=== PATIENT | female | born 1950 | race Asian ===

== ENCOUNTER 2024-08-05 19:15 | Emergency (ER) | payer MEDICARE, MEDICAID ==
[~2024-08-05] VITALS: Ht 162.6 cm; Wt 55.0 kg
[2024-08-05 19:55] LABS: BILIRUBIN,URINE NEGATIVE (Neg); CLARITY,URINE CLEAR (Clear); COLOR,URINE YELLOW (Yellow); GLUCOSE, URINE NEGATIVE (Neg); KETONES,URINE NEGATIVE (Neg); LEUKOCYTE ESTERASE ,URINE NEGATIVE (Neg); NITRITES, URINE NEGATIVE (Neg); OCCULT BLOOD,URINE TRACE-INTACT (Neg); PROTEIN,URINE NEGATIVE (Neg); UROBILINOGEN,URINE 0.2 E.U/dL (0.2-1.0)
[2024-08-05 20:00] LABS: BASOPHILS # (AUTO) 0.1 X10'3 (0-0.2); BASOPHILS % (AUTO) 1.3 % (0-1); EOSINOPHILS # (AUTO) 0.3 X10'3 (0-0.9); EOSINOPHILS % (AUTO) 2.5 % (0-6); HEMATOCRIT 40.4 % (35.0-45.0); HEMOGLOBIN 13.7 g/dl (12.0-16.0); LYMPHOCYTES # (AUTO) 4.1 X10'3 (1.1-4.8); LYMPHOCYTES % (AUTO) 34.8 % (21-51); MEAN CORPUSCULAR HEMOGLOBIN 30.3 PG (27.0-31.0); MEAN CORPUSCULAR VOLUME 89.2 FL (78-98); MEAN PLATELET VOLUME 8.1 FL (7.4-10.4); MONOCYTES # (AUTO) 0.8 X10'3 (0-0.9); NEUTROPHILS # (AUTO) 6.4 X10'3 (1.8-7.7); NEUTROPHILS % (AUTO) 54.4 % (42-75); PLATELET COUNT 247 X10'3 (140-440); RED BLOOD COUNT 4.53 X10'6 (4.20-5.60); RED CELL DISTRIBUTION WIDTH 13.2 % (11.5-14.5); WHITE BLOOD COUNT 11.8 X10'3 (4.5-11.0)
[2024-08-05 20:00] LABS: UA COLLECTION TYPE VOIDED
[2024-08-05 20:07] LABS: BACTERIA,URINE NONE SEEN /HPF (Neg); RBC,URINE 0-2 /HPF (0-2); SQUAMOUS EPITHELIAL CELL,UR FEW /LPF (FEW); WBC,URINE NONE SEEN /HPF (0-4)
[2024-08-05 20:10] LABS: ANION GAP 11 (8-16); BLOOD UREA NITROGEN 12 MG/DL (7-18); BUN/CREATININE RATIO 21.1 (10.0-20.0); CALCIUM 9.3 MG/DL (8.5-10.1); CHLORIDE 100 MMOL/L (99-107); CREATININE 0.57 MG/DL (0.40-0.90); GLUCOSE 126 MG/DL (70-104); MAGNESIUM 2.1 MG/DL (1.5-2.4); PRO BRAIN NATRIURETIC PEPTIDE 524 PG/ML (0-450); SODIUM 139 MMOL/L (135-145); TOTAL CARBON DIOXIDE 28.2 MMOL/L (24-32); eCRCL 74 ML/MIN; eGFR > 90 ML/MIN
[2024-08-05] MEDS ORDERED: iohexol 350MG/ML 100ml bottle IV ONE (20:26)
[2024-08-05 20:35] LABS: POTASSIUM 4.2 MMOL/L (3.5-5.1)
[2024-08-05 21:45] VITALS: BP 156/73; PULSE 93; RESP 16; TEMP 98; O2SAT 96
== END 2024-08-05 21:56 | disposition home or self-care (01) ==
LOC: ER 19:16
DX: M25.552 Pain in left hip (principal); K76.89 Other specified diseases of liver; R91.1 Solitary pulmonary nodule; I10 Essential (primary) hypertension
CPT/HCPCS: 36415; 71045; 71275; 74174; 80048; 81001; 83735; 83880; 84145; 84484; 85025; 93005; 99285; Q9967

== ENCOUNTER 2024-08-31 11:21 | Day surgery (SDC) | payer MEDICARE, MEDICAID ==
[~2024-08-31] VITALS: Ht 154.9 cm; Wt 54.8 kg
[2024-08-31] VITALS (7 sets, daily range): BP systolic 122–165; BP diastolic 64–78; PULSE 89–103; RESP 12–16; TEMP 98.2; O2SAT 93–98
[2024-08-31] MEDS ORDERED: SIMV10TA98 PO (12:17)
[2024-08-31] MEDS ORDERED: LOSA50TA64 PO (12:19)
[2024-08-31] MEDS ORDERED: AMLO10TA13 PO (12:19)
[2024-08-31 12:38] LABS: BASOPHILS # (AUTO) 0.1 X10'3 (0-0.2); BASOPHILS % (AUTO) 1.1 % (0-1); EOSINOPHILS # (AUTO) 0.2 X10'3 (0-0.9); EOSINOPHILS % (AUTO) 1.8 % (0-6); HEMATOCRIT 43.9 % (35.0-45.0); HEMOGLOBIN 14.6 g/dl (12.0-16.0); LYMPHOCYTES % (AUTO) 25.3 % (21-51); MEAN CORPUSCULAR HEMOGLOBIN 29.3 PG (27.0-31.0); MEAN CORPUSCULAR HGB CONC 33.2 g/dL (33.0-36.5); MEAN CORPUSCULAR VOLUME 88.2 FL (78-98); MEAN PLATELET VOLUME 8.3 FL (7.4-10.4); MONOCYTES # (AUTO) 0.6 X10'3 (0-0.9); NEUTROPHILS # (AUTO) 7.8 X10'3 (1.8-7.7); NEUTROPHILS % (AUTO) 66.8 % (42-75); PLATELET COUNT 161 X10'3 (140-440); RED BLOOD COUNT 4.98 X10'6 (4.20-5.60); RED CELL DISTRIBUTION WIDTH 14.4 % (11.5-14.5); WHITE BLOOD COUNT 11.7 X10'3 (4.5-11.0)
[2024-08-31 12:53] LABS: APTT 28 SECONDS (22-32); INR 1.1 INR; PROTHROMBIN TIME 10.9 SECONDS (9.0-12.0)
[2024-08-31 12:55] LABS: ALANINE AMINOTRANSFERASE 36 U/L (12-78); ALBUMIN 4.7 G/DL (3.4-5.0); ALKALINE PHOSPHATASE 88 IU/L (46-116); ANION GAP 9 (8-16); ASPARTATE AMINO TRANSFERASE 23 U/L (10-37); BILIRUBIN,TOTAL 0.7 MG/DL (0.1-1.0); BLOOD UREA NITROGEN 9 MG/DL (7-18); BUN/CREATININE RATIO 15.8 (10.0-20.0); CALCIUM 9.4 MG/DL (8.5-10.1); CHLORIDE 101 MMOL/L (99-107); CREATININE 0.57 MG/DL (0.40-0.90); GLUCOSE 101 MG/DL (70-104); POTASSIUM 3.9 MMOL/L (3.5-5.1); SODIUM 140 MMOL/L (135-145); TOTAL CARBON DIOXIDE 29.9 MMOL/L (24-32); TOTAL PROTEIN 9.4 G/DL (6.4-8.2); eCRCL 64 ML/MIN; eGFR > 90 ML/MIN
== END 2024-08-31 16:30 | disposition home or self-care (01) ==
LOC: SSTAY O 11:21
PROVIDERS: ATTEND Emergency Medicine Emergency Medical Services
DX: K76.89 Other specified diseases of liver (principal); I10 Essential (primary) hypertension; Z79.899 Other long term (current) drug therapy
CPT/HCPCS: 36415; 49405; 80053; 85025; 85610; 85730; 87070; J7030

== ENCOUNTER 2024-09-17 20:01 | Emergency (ER) | payer MEDICARE, MEDICAID ==
[~2024-09-17] VITALS: Ht 124.5 cm; Wt 53.6 kg
[~2024-09-17 20:01] MED LIST: AMLO10TA13 PO; LOSA50TA64 PO; SIMV10TA98 PO
[2024-09-17 20:58] LABS: BASOPHILS # (AUTO) 0.2 X10'3 (0-0.2); BASOPHILS % (AUTO) 1.3 % (0-1); EOSINOPHILS # (AUTO) 0.3 X10'3 (0-0.9); EOSINOPHILS % (AUTO) 2.4 % (0-6); HEMATOCRIT 36.7 % (35.0-45.0); HEMOGLOBIN 12.6 g/dl (12.0-16.0); LYMPHOCYTES # (AUTO) 3.8 X10'3 (1.1-4.8); LYMPHOCYTES % (AUTO) 28.7 % (21-51); MEAN CORPUSCULAR HEMOGLOBIN 29.6 PG (27.0-31.0); MEAN CORPUSCULAR HGB CONC 34.3 g/dL (33.0-36.5); MEAN CORPUSCULAR VOLUME 86.5 FL (78-98); MEAN PLATELET VOLUME 7.6 FL (7.4-10.4); MONOCYTES % (AUTO) 7.5 % (2-12); NEUTROPHILS # (AUTO) 7.9 X10'3 (1.8-7.7); NEUTROPHILS % (AUTO) 60.1 % (42-75); PLATELET COUNT 250 X10'3 (140-440); RED BLOOD COUNT 4.24 X10'6 (4.20-5.60); RED CELL DISTRIBUTION WIDTH 14.3 % (11.5-14.5); WHITE BLOOD COUNT 13.2 X10'3 (4.5-11.0)
[2024-09-17 20:58] LABS: BILIRUBIN,URINE NEGATIVE (Neg); CLARITY,URINE CLEAR (Clear); COLOR,URINE YELLOW (Yellow); GLUCOSE, URINE NEGATIVE (Neg); KETONES,URINE NEGATIVE (Neg); LEUKOCYTE ESTERASE ,URINE NEGATIVE (Neg); NITRITES, URINE NEGATIVE (Neg); OCCULT BLOOD,URINE TRACE-INTACT (Neg); PROTEIN,URINE NEGATIVE (Neg); UROBILINOGEN,URINE 0.2 E.U/dL (0.2-1.0)
[2024-09-17 21:02] LABS: UA COLLECTION TYPE NON-SPECIFIED
[2024-09-17 21:04] LABS: BACTERIA,URINE 1+ /HPF (Neg); RBC,URINE 0-2 /HPF (0-2); SQUAMOUS EPITHELIAL CELL,UR FEW /LPF (FEW); WBC,URINE 0-4 /HPF (0-4)
[2024-09-17 21:13] LABS: ALANINE AMINOTRANSFERASE 16 U/L (12-78); ALBUMIN 3.8 G/DL (3.4-5.0); ALBUMIN/GLOBULIN RATIO 0.8 (1.1-1.5); ALKALINE PHOSPHATASE 104 IU/L (46-116); ANION GAP 8 (8-16); ASPARTATE AMINO TRANSFERASE 13 U/L (10-37); BILIRUBIN,TOTAL 0.5 MG/DL (0.1-1.0); BLOOD UREA NITROGEN 7 MG/DL (7-18); CALCIUM 8.8 MG/DL (8.5-10.1); CHLORIDE 105 MMOL/L (99-107); CREATININE 0.54 MG/DL (0.40-0.90); GLUCOSE 154 MG/DL (70-104); LIPASE 63 U/L (16-77); POTASSIUM 3.2 MMOL/L (3.5-5.1); SODIUM 142 MMOL/L (135-145); TOTAL CARBON DIOXIDE 28.6 MMOL/L (24-32); TOTAL PROTEIN 8.4 G/DL (6.4-8.2); eCRCL 29 ML/MIN; eGFR > 90 ML/MIN
[2024-09-17] MEDS ORDERED: iohexol 300mg/ml 100ml inj. ONE (21:49)
--- NOTE | 2024-09-18 00:24 | RADIOLOGY REPORT ---
Clinical History abdominal pain Comparison None Technique: Contiguous axial images were acquired from the domes of the diaphragm to the pubic symphys is after the uneventful administration of IV contrast. Data is reconstructed in the sagittal and cor onal planes. All CT scans at this medical facility are performed using dose modulation techniques as appropriate t o a performed exam including the following: Automated exposure control was utilized; adjustment of th e mA and/or kV according to patient size; and use of iterative reconstruction technique. All CT studies are reported to the Dose Index Registry of the [employer]. Contrast: omni 300 100ml Radiation Dose: CTDI (mGy): 8.01; DLP (mGy-cm): 362.38 KARISSA MAIER, [id number] Findings: Lung bases: There is no focal consolidation. Liver: complex cystic mass in the left lobe 9.7 x 9.5 x 11.0 cm.. Gallbladder: No stone. Normal common bile duct. Kidneys: No kidney stone. Mild bilateral hydronephrosis. Spleen: Unremarkable. Pancreas: Unremarkable. Adrenals: Unremarkable. Small bowel: No evidence of bowel obstruction. No mesenteric inflammation. Large bowel: No obstruction or inflammation. colonic diverticula Appendix: Normal appendix. Aorta: No aneurysm Bladder: Unremarkable Reproductive: Unremarkable Lymphadenopathy: No enlarged lymph nodes. Bones: No displaced fracture. Peritoneum: No free air. No free fluid. Impression: 1. Complex cystic mass in the left lobe of liver measuring 9.7 x 9.5 x 11.0 cm. Question hemorrhagi c cyst, hematoma, cystic mass. 2. Mild bilateral hydronephrosis. No obstructive stones 3. No gallstones 4. No bowel obstruction 5. Normal appendix 6. No bladder stone or inflammation. 7. Diverticulosis This report was electronically signed by Isis Moran MD on 09/18/2024 12:21:26 AM.
--- NOTE | 2024-09-18 00:35 | Physician Documentation ---
History of Present Illness Chief Complaint: Abdominal Pain Stated Complaint: ABDOM PAIN Time Seen by MD: 20:09 Primary Medical Doctor: [facility] Source: patient, family Mode of Arrival: POV HPI 74-year-old female history of recently diagnosed hepatic cyst status post IR drainage 2 weeks ago presenting for abdominal bloating and palpable mass. Medication Reconciliation Allergies: Coded Allergies: No Known Allergies (Unverified , 08/05/24) Scheduled Amlodipine Besylate (Amlodipine Besylate), 1 TAB PO DAILY, (Reported) Losartan Potassium (Losartan Potassium), 1 TAB PO DAILY, (Reported) Simvastatin (Simvastatin), 1 TAB PO DAILY, (Reported) Past Medical History Past Medical History: Hypertension Past Surgical History: no surgical history Drug Use: none Lives In: Home Review of Systems Constitutional: Denies: fever Physical Exam Vital Signs: Temperature: 98.8, Source: Oral, Heart Rate: 69, Respiratory Rate: 15, BP: 119/65, Pulse Oximetry: 98, Weight: 53.640 Oxygen Flow Rate: 0 Physical Exam Well-appearing no distress Abdomen full, palpable epigastric mass with mild localized tenderness no guarding no rebound Progress Results/Orders Results/Orders Orders - NIKUNJ LOZOYA MD Ct Abdomen Pelvis (09/17/24 21:30) Completed Orders - NIKUNJ LOZOYA MD Cbc/Diff (09/17/24 20:15) BMP (09/17/24 20:15) Lipase (09/17/24 20:15) CMP (09/17/24 20:15) Ua W/Microscopic, Cult If Ind (09/17/24 20:30) Ct Abdomen Pelvis (09/17/24 21:30) Iohexol 300mg/Ml 100ml Inj. (Omnipaque-3 (09/17/24 21:49) Vital Signs 09/17/24 09/17/24 09/17/24 09/18/24 20:03 20:13 22:29 00:17 Temp 98.8 98.8 Pulse 97 78 69 Resp 15 15 15 B/P (MAP) 173/85 119/65 (83) Pulse Ox 100 98 98 O2 Flow Rate 0 0 0 Laboratory Tests Test 09/17/24 20:30 09/17/24 20:39 Urine Specimen Description Non-specified Urine Color Yellow Urine Clarity Clear Urine pH 6.0 Urine Specific [place] <=1.005 Urine Protein Negative Urine Glucose (UA) Negative Urine Ketones Negative Urine Occult Blood Trace-intact Urine Nitrite Negative Urine Bilirubin Negative Urine Urobilinogen 0.2 Urine Leukocyte Esterase Negative Urine RBC 0-2 Urine WBC 0-4 Urine Squamous Epithelial Cells Few Urine Bacteria 1+ Urine Culture Indicated Not ind Volume Urine Centrifuged 10 ml Urine Comment White Blood Count 13.2 H Red Blood Count 4.24 Hemoglobin 12.6 Hematocrit 36.7 Mean Corpuscular Volume 86.5 Mean Corpuscular Hemoglobin 29.6 Mean Corpuscular Hemoglobin Concent 34.3 Red Cell Distribution Width 14.3 Platelet Count 250 Mean Platelet Volume 7.6 Neutrophils (%) (Auto) 60.1 Lymphocytes (%) (Auto) 28.7 Monocytes (%) (Auto) 7.5 Eosinophils (%) (Auto) 2.4 Basophils (%) (Auto) 1.3 H Neutrophils # (Auto) 7.9 H Lymphocytes # (Auto) 3.8 Monocytes # (Auto) 1.0 H Eosinophils # (Auto) 0.3 Basophils # (Auto) 0.2 CBC Comment Sodium Level 142 Potassium Level 3.2 L Chloride Level 105 Carbon Dioxide Level 28.6 Anion Gap 8 Blood Urea Nitrogen 7 Creatinine 0.54 Estimated GFR/1.73 m2 > 90 BUN/Creatinine Ratio 13.0 Glucose Level 154 H Calcium Level 8.8 Total Bilirubin 0.5 Aspartate Amino Transf (AST/SGOT) 13 Alanine Aminotransferase (ALT/SGPT) 16 Alkaline Phosphatase 104 Total Protein 8.4 H Albumin 3.8 Globulin 4.6 H Albumin/Globulin Ratio 0.8 L Lipase 63 Chemistry Comments EKG/XRAY/CT/US/VASC/MRI CT : Impression I independently interpreted CT abdomen pelvis shows enlarging heterogeneous hepatic cyst Medical Decision Making Additional Comments Hepatic cysts reoccurrence, malignancy, infection Departure Disposition: HOME / SELF CARE / HOMELESS Impression: Primary Impression: Hepatic cyst Additional Instructions: Please return for drainage of your cyst on . Return sooner if you develop fever. Take Tylenol for discomfort. Referrals: NO PRIMARY CARE PROVIDER (PCP) Signature Scribe Signature: na Attestation: NIKUNJ Grimes MD September 18, 2024 00:35
[2024-09-18] MEDS: ketorolac trometh 15mg/ml vial 15 MG/ML ML IV ONE (01:05)
[2024-09-18 01:18] VITALS: BP 147/63; PULSE 79; RESP 16; TEMP 98.2; O2SAT 99
== END 2024-09-18 01:21 | disposition home or self-care (01) ==
LOC: ER 20:02
DX: K76.89 Other specified diseases of liver (principal); I10 Essential (primary) hypertension
CPT/HCPCS: 36415; 74177; 80053; 81001; 83690; 85025; 96374; 99285; J1885; Q9967

== ENCOUNTER → 2024-09-29 | Day surgery (SDC) | payer MEDICARE, MEDICAID ==
[2024-09-29] VITALS (15 sets, daily range): BP systolic 97–176; BP diastolic 52–84; PULSE 87–126; RESP 16–18; TEMP 98.5; O2SAT 2–98
[~2024-09-29] VITALS: Ht 154.9 cm; Wt 53.5 kg
[~2024-09-29] MED LIST changes: +DOXYCYCLINE IPL ONE; +STERILE IPL ONE; +WATER FOR INJ IPL ONE
[2024-09-29 11:54] LABS: BASOPHILS # (AUTO) 0.1 X10'3 (0-0.2); BASOPHILS % (AUTO) 0.9 % (0-1); EOSINOPHILS # (AUTO) 0.1 X10'3 (0-0.9); EOSINOPHILS % (AUTO) 1.3 % (0-6); HEMATOCRIT 38.1 % (35.0-45.0); HEMOGLOBIN 12.8 g/dl (12.0-16.0); LYMPHOCYTES # (AUTO) 2.4 X10'3 (1.1-4.8); LYMPHOCYTES % (AUTO) 22.7 % (21-51); MEAN CORPUSCULAR HEMOGLOBIN 29.1 PG (27.0-31.0); MEAN CORPUSCULAR HGB CONC 33.7 g/dL (33.0-36.5); MEAN CORPUSCULAR VOLUME 86.2 FL (78-98); MEAN PLATELET VOLUME 7.8 FL (7.4-10.4); MONOCYTES # (AUTO) 0.7 X10'3 (0-0.9); MONOCYTES % (AUTO) 6.7 % (2-12); NEUTROPHILS # (AUTO) 7.4 X10'3 (1.8-7.7); NEUTROPHILS % (AUTO) 68.4 % (42-75); PLATELET COUNT 252 X10'3 (140-440); RED BLOOD COUNT 4.42 X10'6 (4.20-5.60); RED CELL DISTRIBUTION WIDTH 13.8 % (11.5-14.5); WHITE BLOOD COUNT 10.8 X10'3 (4.5-11.0)
[2024-09-29 12:02] LABS: APTT 30 SECONDS (22-32); INR 1.1 INR; PROTHROMBIN TIME 11.4 SECONDS (9.0-12.0)
[2024-09-29 12:06] LABS: ALANINE AMINOTRANSFERASE 17 U/L (12-78); ALBUMIN/GLOBULIN RATIO 0.7 (1.1-1.5); ALKALINE PHOSPHATASE 91 IU/L (46-116); ANION GAP 8 (8-16); ASPARTATE AMINO TRANSFERASE 21 U/L (10-37); BILIRUBIN,TOTAL 0.7 MG/DL (0.1-1.0); BLOOD UREA NITROGEN 7 MG/DL (7-18); BUN/CREATININE RATIO 11.5 (10.0-20.0); CALCIUM 9.3 MG/DL (8.5-10.1); CHLORIDE 99 MMOL/L (99-107); CREATININE 0.61 MG/DL (0.40-0.90); GLUCOSE 113 MG/DL (70-104); POTASSIUM 3.5 MMOL/L (3.5-5.1); SODIUM 137 MMOL/L (135-145); TOTAL CARBON DIOXIDE 30.2 MMOL/L (24-32); TOTAL PROTEIN 9.5 G/DL (6.4-8.2); eCRCL 60 ML/MIN; eGFR > 90 ML/MIN
--- NOTE | 2024-09-29 15:07 | PROGRESS NOTE ---
H&P - Interval Note Providers to CC ~ Patient examined and condition: Yes Interval changes as follows: Recurrence of liver cyst left lobe. Risks benefits alt of aspiration and pos sible sclerotherapy of cyst d/w pt and informed consent disclosed. MAL 2 ASA 2. CHUY NELSON MD September 29, 2024 15:07
--- NOTE | 2024-09-29 15:14 | PROGRESS NOTE ---
Progress Note - Angio Providers to CC ~ Angio Progress Note: Enlarged left hepatic cyst despite prior drainage recently performed. Total of 250cc of dark bloody fluid removed with large residual non fluid component presumed to be older clot. Gentle admin of 30cc of Doxycycline of low concentration over one hour and aspiration. I believe patient will benefit from a liver specialist consultation in Dr Barillas who visits [place], [place] once a month. Message left with his office and I will ask for report to be faxed to his office as well as primary MD for patient to consult him. Meantime I have also asked lab for any survey of fluid aspirated to be eval for parasitic hydatid etc disease as she has traveled multiple times to the [facility]. CHUY NELSON MD September 29, 2024 15:13
--- NOTE | 2024-09-29 16:09 | RADIOLOGY REPORT ---
CT-guided large left hepatic cyst aspiration as well as sclerotherapy HISTORY: Recurrent left hepatic cyst. Last aspirated by ultrasound on August 31, 2024 where a total of approximately 250 cc of fairly clear yellow fluid was removed. Patient has a history of traveling to the [facility]. After explanation of the above procedure and informed written consent, patient prepped and draped in usual sterile fashion. A surgical timeout was performed. Utilizing CT guidance a 5 Sami [employer], [place] needle catheter system the catheter was advanced into the central aspect of this large hepatic cyst which demonstrates echogenic changes suggestive of old thrombus within. A total of approximately 250 cc of very dark black-red bloody fluid of somewhat low viscosity was removed without complication. Next a total of 30 cc of a doxycycline sclerosant mixture with sterile water was instilled and left in place for approximately 1.5 hours. This was withdrawn delicately with a 60 cc syringe and of note a total of approximately 200 cc of more fluid was removed. Total removed was 450 cc of dark old blood appearance low-viscosity fluid. A sample was sent to laboratory for possible parasitic/hydatid cystic infection evaluation. A total of 5 cc 1% lidocaine solution used for local anesthesia. The DLP was 899.40. IMPRESSION: Relatively fast reoccurrence of large left hepatic cyst which now has dark old blood fluid mixed with thrombus. Sclerosant therapy utilized given no risk of infection on initial sample. The sample also sent for parasitic evaluation. I believe the patient would benefit from a hepatology consult and we have discussed this with family members to have a consult with Dr. Vasuqez's who visits a [place] [facility] [place] a [place].
== END | disposition home or self-care (01) ==
LOC: SSTAY O 10:37
PROVIDERS: ATTEND Radiology Diagnostic Radiology
DX: K76.89 Other specified diseases of liver (principal); Z79.899 Other long term (current) drug therapy
CPT/HCPCS: 36415; 49185; 49405; 80053; 85025; 85610; 85730; A4421; A4615; A6258; A6402; J1271; Z7610; A6449; J7030